=== PATIENT | female | born 1955 | race African-American/Black ===

== ENCOUNTER → 2017-11-27 | Outpatient (CLI) | payer MEDICARE, BC, OTHER | END | disposition home or self-care (01) | LOC: PCVCIMAG 13:58 | DX: I73.9 Peripheral vascular disease, unspecified (principal); L97.519 Non-pressure chronic ulcer of other part of right foot with unspecified severity; L97.319 Non-pressure chronic ulcer of right ankle with unspecified severity; I70.8 Atherosclerosis of other arteries | CPT/HCPCS: 93925 ==

== ENCOUNTER → 2017-12-18 | Outpatient (CLI) | payer MEDICARE ==
[~2017-12-18] MED LIST: ACETAMINOPHEN 500 MG TABLET PO; CLOPIDOGREL BISULFATE 75 MG TABLET; DIAZEPAM 10 MG TABLET.; EPINEPHrine 1 MG/ML VIAL; EPTIFIBATIDE BOLUS 2,000 MCG/ML 10ML VIAL. IV; HEPARIN SODIUM 5,000 UNIT/ML VIAL for PCVC.; IODIXANOL 270 MG/ML 100 ML VIAL.; IV NORMAL SALINE 1000ML BAG 1,000 ML; LIDOCAINE 1% Multi-Dose 20 ML VIAL.; MIDAZOLAM HCL/PF 2 MG/2 ML VIAL.; ceFAZolin SODIUM 1 GM VIAL; fentaNYL PF VIAL 100 MCG/2 ML VIAL
== END | disposition home or self-care (01) ==
LOC: PCVCINTER 09:05
DX: I70.238 Atherosclerosis of native arteries of right leg with ulceration of other part of lower leg (principal); I70.202 Unspecified atherosclerosis of native arteries of extremities, left leg; I70.1 Atherosclerosis of renal artery; L97.819 Non-pressure chronic ulcer of other part of right lower leg with unspecified severity; I10 Essential (primary) hypertension
CPT/HCPCS: 36246; 36252; 75716; 76937; 99152; 99153; C1751; C1760; C1769; C1894; J0171; J0690; J1327; J1644; J2250; J3010; J7030